=== PATIENT | male | born 1980 | race Caucasian/White ===

== ENCOUNTER 2018-01-15 08:03 | Outpatient (RCR) | payer MEDICAID, SELFPAY ==
--- NOTE | 2018-01-15 08:26 | NT_ITS ---
01/15/18 Iron completed his MSP program today. I touched base with him regarding his return to work this week. He's worked 2 shifts this week, and states that he had no difficulty. He felt confident with the tasks he was completing, was able to manage stairs repetitively, and did not experience any significant fatigue. He's going to drop down to 1x/week for MSP, and will touch base with me as needed, gradually transitioning to a fully independent program.
== END 2018-02-12 23:59 | disposition home or self-care (01) ==
LOC: PT 08:03
PROVIDERS: PCP Nurse Practitioner Family; Referring Provider Physical Medicine & Rehabilitation; Visit Provider Physical Medicine & Rehabilitation
DX: I69.393 Ataxia following cerebral infarction (principal)

== ENCOUNTER 2018-03-29 01:45 | Outpatient (CLI) | payer MEDICAID, SELFPAY ==
[2018-03-29 10:11] LABS: Cholesterol 99 mg/dL (50-200); HDL Cholesterol 41 mg/dL (40-60); LDL CHOLESTEROL 50 mg/dL (<100); Triglyceride 44 mg/dL (30-150)
== END 2018-03-29 02:05 ==
PROVIDERS: PCP Nurse Practitioner Family; Visit Provider Nurse Practitioner Family
DX: E78.5 Hyperlipidemia, unspecified (principal)
CPT/HCPCS: 36415; 80061; 83721

== ENCOUNTER 2019-04-15 09:33 | Outpatient (CLI) | payer OTHER, SELFPAY ==
[2019-04-15 11:04] LABS: Calculated LDL 58 mg/dL; Cholesterol 113 mg/dL (50-200); HDL Cholesterol 38 mg/dL (40-60); Triglyceride 87 mg/dL (30-150)
== END 2019-04-15 09:53 ==
PROVIDERS: PCP Nurse Practitioner Family; Visit Provider Nurse Practitioner Family
DX: Z86.73 Personal history of transient ischemic attack (TIA), and cerebral infarction without residual deficits (principal); Z91.89 Other specified personal risk factors, not elsewhere classified
CPT/HCPCS: 36415; 80061

== ENCOUNTER 2019-08-19 09:24 | Outpatient (CLI) | payer MEDICARE, OTHER, SELFPAY ==
[2019-08-22 12:37] LABS: HSV Type 1 Ab, IgG Positive (Negative); HSV Type 2 Ab, IgG Negative (Negative)
== END 2019-08-19 09:44 ==
PROVIDERS: PCP Nurse Practitioner Family; Visit Provider Nurse Practitioner Family
DX: B00.1 Herpesviral vesicular dermatitis (principal)
CPT/HCPCS: 36415; 86694; 86695; 86696

== ENCOUNTER 2020-04-02 07:44 | Outpatient (CLI) | payer OTHER, SELFPAY ==
[2020-04-04 17:53] LABS: COVID-19 RT-PCR Result NEGATIVE (Negative)
== END 2020-04-02 08:04 ==
PROVIDERS: Student in an Organized Health Care Education/Training Program; PCP Nurse Practitioner Family; Visit Provider Nurse Practitioner Family
DX: Z20.828 Contact with and (suspected) exposure to other viral communicable diseases (principal)
CPT/HCPCS: U0003

== ENCOUNTER 2021-06-25 06:13 | Emergency (ER) | payer MEDICARE, SELFPAY ==
[2021-06-25] VITALS (23 sets, daily range): BP systolic 93–134; BP diastolic 61–81; PULSE 77–97; RESP 12–36; TEMP 36.1; O2SAT 95–98
--- NOTE | 2021-06-25 06:15 | RT.EKG_ITS ---
APPROVED REPORT Exam: Resting ECG Reason for Exam: chest pain Patient Location: E HR:85 bpm ECG Measurements Heart Rate 85 AXIS MI 151 P 59 QRSd 99 QRS 57 QT 359 T 32 QTc 427 Conclusion Sinus rhythm...normal P axis, V-rate 60- 99
--- NOTE | 2021-06-25 06:34 | W.ED.GENAD ---
Discharge Plan Disposition Patient Disposition: HOME Condition: Good Discharge Details Clinical Impression: Fever, Pneumonia Primary Care Provider: Mary Benavides ED Provider: Bradley Miranda Home Meds and New Rx's Prescriptions: New doxycycline hyclate 100 mg tablet 100 mg PO BID Qty: 20 RF: 0 Continued Centrum 18-400 mg-mcg tablet 1 tab PO DAILY RF: 0 Lumigan 0.01 % drops 1 drp ophthalmic (eye) QPM RF: 0 Hylands leg cramps 1 tab PO DAILY PRN (Reason: Leg cramps) RF: 0 atorvastatin 40 mg tablet 40 mg PO DAILY Qty: 90 RF: 3 aspirin 81 MG tablet,chewable 81 mg PO DAILY RF: 0 Discharge Instructions Instructions: Bacterial Pneumonia (ED) Additional Instructions: Your COVID test is negative. At this time your work-up shows evidence of mild pneumonia. Please take the antibiotic as directed. It is been sent to your pharmacy on file. If you notice any worsening of your symptoms, or any new symptoms such as vomiting, diarrhea, fever, chills, shortness of breath, chest pain, numbness, weakness, or fainting , please return immediately to the emergency department for reevaluation. Please follow up with your primary care provider as soon as possible for reassessment and reevaluation. As always, it was a pleasure participating in your medical care today. 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 He can't think of anything that makes the pain come or go but had some pain this morning and noted a fever to 101.7 so came here. He has had a dry cough as well. Denies headache, neck stiffness, sore throat, n/v, dysuria, diarrhea, and no recent travel. He is in no distress on exam and denies chest pain now, points to the left anterior axillary line over left lower chest where he had the pain. He has a nondistended abdomen, mild tenderness in llq without guarding. Unclear etiology for his chest/abdomen pain and fever based on history and physical, will obtain labs including cbc, cultures, lactate, and also image his chest and abdomen to evaluate for pe, pneumonia and diverticulitis Differential Diagnosis Differential Diagnosis: pneumonia, covid, diverticulitis, pe Medical Records Medical records reviewed: Yes I reviewed the patient's medical records. Lab Data Lab results reviewed: Yes I reviewed the patient's lab results. ECG Data Attestation: I personally reviewed and interpreted this ECG (s) as follows: Prior ECG tracings: not available for review Interpretation: sinus rhythm, rate of 85, no acute st t wave ischemic findings <Bradley Miranda, - Last Filed: 06/25/21 08:58> The patient was signed out to me by my colleague Dr. Chacho Howell. Please refer to his HPI, physical exam, assessment and plan. At time of signout we are pending CT scan and COVID test reassessment. CT scan shows evidence of mild pneumonitis versus pneumonia. Laboratory work-up is stable, patient vital signs are stable, no hypoxemia, tachypnea, hypotension, or significant tachycardia. COVID test is negative. Patient appears notably stable for outpatient treatment and management of community-acquired pneumonia. He will be started on doxycycline. He will be given here. Discussed red flags for which to return. I have extensively reviewed the treatment plan and discharge instructions with the patient. I have addressed all patient concerns at this time. The patient was made aware of what symptoms to monitor for that would warrant a return to the emergency department. Discussed the plan with the patient, they demonstrate verbal understanding and agreement with our assessment and plan at this time. The documentation in this chart was dictated using [employer] dictation software. Please excuse any dictation errors. FINDINGS: The lungs show very subtle ground-glass opacities in a fairly diffuse pattern, most marked in the lung apices but also involving peripheral portions of the left lower lobe. No focal consolidation. There is no pleural effusion seen. There is no mediastinal or hilar adenopathy. Pulmonary arteries are unremarkable with no evidence of pulmonary embolic disease. Thoracic aorta and major branches appear intact with no evidence of aneurysm or dissection. No bony abnormality seen in the thorax. The liver is normal appearance. Gallbladder and bile ducts are CT normal. No abnormality seen involving the spleen. Pancreas appears intact. The adrenals are unremarkable in appearance. The kidneys appear intact with no evidence of hydronephrosis or nephrolithiasis. 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 Abdominal aorta and major visceral branches appear intact. No significant abdominal wall hernia seen. No significant abdominal or pelvic adenopathy although there is mild prominence of mesenteric nodes, nonspecific.. No focal bowel pathology. No evidence of appendicitis or diverticulitis. IMPRESSION: The appearance is suggestive of a mild diffuse pneumonitis, presumably viral. No other acute findings. HPI <Chacho Howell MD - Last Filed: 06/25/21 06:43> General Mode of arrival: ambulatory. Date/Time Provider Initiated Documentation: 06/25/21 06:20. Limitations to Documentation: no limitations. Information obtained by: patient. History of Present Illness 40 year old M presents to the emergency department with the chief complaint of left sided chest pain, described as moderate, Quality is described as stabbing, and is localized to the chest. Patient abdomen. Patient started experiencing this day(s) (2) and it has been now resolved. No relieving factors improve symptom(s), No exacerbating factors reported . Patient notes cough and fever/chills. Patient did receive the following treatments prior to arrival, none Related Data Home Medications Medication Instructions Recorded Confirmed aspirin 81 mg PO DAILY tab-cap 02/23/17 06/25/21 multivitamin-ferrous 1 tab PO DAILY 04/05/18 06/25/21 fumarate-folic acid 18 mg-400 mcg tablet Hylands leg cramps 1 tab PO DAILY PRN 06/20/21 06/25/21 atorvastatin 40 mg tablet 40 mg PO DAILY #90 tab-cap 06/20/21 06/25/21 bimatoprost 0.01 % eye drops 1 drp OPHTHALMIC (EYE) QPM 06/20/21 06/25/21 doxycycline hyclate 100 mg PO BID #20 tab 06/25/21 Previous Rx's Medication Instructions Recorded atorvastatin 40 mg tablet 40 mg PO DAILY #90 tab-cap 06/20/21 doxycycline hyclate 100 mg PO BID #20 tab 06/25/21 Allergies Allergy/AdvReac Type Severity Reaction Status Date / Time No Known Allergies Allergy Verified 06/25/21 06:24 General Stated Complaint: Abd Prob JANN: 3 Review of Systems <Chacho Howell MD - Last Filed: 06/25/21 06:43> All systems reviewed & are unremarkable except as noted in HPI and below Constitutional Constitutional: Denies chills and Denies weakness Cardiovascular Cardiovascular: Denies dyspnea Respiratory Respiratory: Denies dyspnea Gastrointestinal Gastrointestinal: Denies nausea and Denies vomiting Musculoskeletal Musculoskeletal: Denies joint swelling Neurologic Neurologic: Denies weakness Psychiatric Psychiatric: Denies depression [facility] <Chacho Howell MD - Last Filed: 06/25/21 06:43> All Active Problems (Updated 06/25/21 @ 08:43 by Bradley Miranda DO) Fever (Acute) Pneumonia (Acute) Onychomycosis (Acute) IFG (impaired fasting glucose) (Acute) HSV-1 (herpes simplex virus 1) infection (Acute) Male erectile dysfunction, unspecified (Chronic 05/11/17) S/p CVA Medical History Aspiration pneumonia of left lower lobe (01/22/17) During inpatient hospitalization for CVA in 2017 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 Grandmother , Lung CA at age 77. Neoplasm Lung CA Maternal Grandfather Melanoma Social History Smoking/Tobacco Use Status: Never Second Hand Exposure: No Smoking risk assessment performed?: Yes Alcohol Intake: current Alcohol Intake frequency: holidays/special occasions only Substance use type: does not use Adopted: No Caregiver/Support person: No Foster care: No Household members: significant other Housing: apartment Number of Children: 1 Communication Needs: Corrective Lenses Education Level: vocational Do you need help understanding health information?: Rarely current occupation: Manager [employer] Pets and animals: Yes Pets and animals: cat(s) and dog(s) Sexually active: Yes Do you think of yourself as: straight/heterosexual Current gender identity: male What is your relationship status?: living with partner How often do you talk on the phone with friends or family?: once per week How often do you get together with friends or relatives?: once per week How often do you attend yazidism or catholic services?: 1-3 times per year Do you belong to any clubs or organized social groups?: yes Panel score (0-1 are the most socially isolated patients): 2 NHANES result reviewed/action taken: Yes What type of physical activity do you participate in: regular exercise Duration: < 15 minutes/day Frequency: 1-2 times per week Francine/Faith: Adventism Special francine needs: No Seatbelt use: always Helmet use: Yes Drive intox or ride w/intox 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) Water heater temp set <120 deg: Yes Working smoke detector in home: Yes Fire extinguisher in home: Yes Carbon monox detector in home: Yes Firearms in home: No Do you feel safe at home: Yes Do you feel safe in your relationship?: Yes Exam <Chacho Howell MD - Last Filed: 06/25/21 06:43> Const General: no acute distress Orientation: alert [facility] Head: normal to inspection Ears: external ears normal General nose exam: external nose normal Mouth: moist mucous membranes Eyes General: appearance normal, both eyes and all related structures Neck Neck: normal visual inspection Chest Chest: normal inspection of the chest Resp Effort & Inspection: normal respiratory effort and able to speak in complete sentences Cardio Rate: regular rate GI Palpation: soft and tender Skin General skin exam: no rashes or lesions noted Neuro General: patient alert and patient oriented x3 Extrem General: normal to inspection Psych Mental Status: mental status grossly normal Course <Chacho Howell MD - Last Filed: 06/25/21 06:43> Vital Signs Vital signs: Vital Signs Temperature 36.1 C L 06/25/21 06:21 Pulse 95 H 06/25/21 06:21 Respiratory Rate 16 06/25/21 06:21 Blood Pressure 123/81 06/25/21 06:21 Pulse Oximetry 98 06/25/21 06:21 Temperature 36.1 C L 06/25/21 06:21 Temperature Source Skin 06/25/21 06:21 Pulse 95 H 06/25/21 06:21 Respiratory Rate 16 06/25/21 06:21 Respiratory Effort Non-Labored 06/25/21 06:25 Blood Pressure 123/81 06/25/21 06:21 Pulse Oximetry 98 06/25/21 06:21 Oxygen Delivery Method Room Air 06/25/21 06:21 Oxygen Flow Rate 0 06/25/21 06:21 Pain Level 6 06/25/21 06:21 Lab/Test Results Lab/Test Results: 06/25/21 06:26 Blood Blood Culture - Pending 06/25/21 06:26 Blood Blood Culture - Pending Sign Out <Chacho Howell MD - Last Filed: 06/25/21 06:43> Sign Out Data: Sign Out Comment: intermittent left sided chest/abdomen/back pain for 2 days and today fever to 101.7 at home, pending labs and ct Last updated by Chacho Howell MD at 06/25/21 06:48
[2021-06-25] MEDS: Normal Saline 1,000 ML 1000 ML IV (06:35)
[2021-06-25 06:36] LABS: Abs Immature Grans 0.08 10^3/uL (0.0-0.06); Absolute Eosinophil Count 0.04 10^3/uL (0.0-0.7); Absolute Monocyte Count 0.95 10^3/uL (0.1-0.8); Basophils % 0.5; Eosinophils % 0.2; HCT 43.4 % (40.0-50.0); HGB 13.9 g/dL (13.5-17.5); Immature Grans % 0.4; MCV 84.3 fL (80-95); Monocytes % 4.9; Nucleated RBC 0 %; Platelet Count 214 10^3/uL (130-400); RBC 5.15 10^6/uL (4.36-5.78); RDW 12.2 % (11.8-14.1); RDW-SD 37.6 fL; WBC 19.32 10^3/uL (4.4-10.8)
[2021-06-25 06:38] LABS: Absolute Lymphocyte Count 0.97 10^3/uL (1.2-3.4); Absolute Neutrophil Count 17.19 10^3/uL (1.2-6.7)
[2021-06-25] MEDS: Omnipaque 350 MG/ML 100 ML BTL IJ (06:58)
[2021-06-25 06:59] LABS: ALT 41 U/L (16-63); AST 31 U/L (15-37); Alkaline Phosphatase 82 U/L (46-116); Anion Gap 8.8 mmol/L (3-11); BUN 16 mg/dL (7-18); Bilirubin, Direct 0.1 mg/dL (0.0-0.2); Bilirubin, Total 0.4 mg/dL (0.2-1.0); CO2 29.2 mmol/L (21.0-32.0); Calcium 9.1 mg/dL (8.5-10.1); Chloride 106 mmol/L (98-107); Glucose 135 mg/dL (74-106); Lipase 94 U/L (73-393); Magnesium 1.7 mg/dL (1.8-2.4); Potassium 3.7 mmol/L (3.5-5.1); Sodium 144 mmol/L (136-145); Total Protein 7.4 g/dL (6.4-8.2); Troponin I < 50 ng/L (<or=60)
[2021-06-25] MEDS: Normal Saline 100 ML BAG 50 ML IJ (07:00)
[2021-06-25 07:29] LABS: Source Nasal/Nares
--- NOTE | 2021-06-25 07:35 | DI.CT_ITS ---
Exam(s) CT CHEST PE ABD PELVIS W EXAM: CT CHEST PE ABD PELVIS W CLINICAL HISTORY: left sided chest pain, fever, left abdominal pain TECHNIQUE: CT examination of the chest, abdomen, and pelvis was performed with intravenous infusion of 100 cc of Omnipaque 350. COMPARISON: CT CTA BRAIN AND NECK from 06/24/2017 FINDINGS: The lungs show very subtle ground-glass opacities in a fairly diffuse pattern, most marked in the betzy g apices but also involving peripheral portions of the left lower lobe. No focal consolidation. There is no pleural effusion seen. There is no mediastinal or hilar adenopathy. Pulmonary arteries are unremarkable with no evidence of pulmonary embolic disease. Thoracic aorta and major branches appear intact with no evidence of aneurysm or dissection. No bony abnormality seen in the thorax. The liver is normal appearance. Gallbladder and bile ducts are CT normal. No abnormality seen involving the spleen. Pancreas appears intact. The adrenals are unremarkable in appearance. The kidneys appear intact with no evidence of hydroneph rosis or nephrolithiasis. 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 Abdominal aorta and major visceral branches appear intact. No significant abdominal wall hernia seen. No significant abdominal or pelvic adenopathy although th ere is mild prominence of mesenteric nodes, nonspecific.. No focal bowel pathology. No evidence of appendicitis or diverticulitis. IMPRESSION: The appearance is suggestive of a mild diffuse pneumonitis, presumably viral. No other acute findings. RADIATION DOSE DELIVERED: 888.98mGy.cm Total DLP 888.98mGy.cm Total DLP 11.79mGy CTDIvol
[2021-06-25 08:00] LABS: Bilirubin Negative (Negative); Blood Negative (Negative); Clarity Sl Cloudy (Clear); Glucose Negative (Negative); Ketones Negative (Negative); Leukocyte Esterase Negative (Negative); Nitrite Negative (Negative); Urobilinogen 0.2 EU/dL (Up TO 0.2)
[2021-06-25 08:24] LABS: COVID-19 PCR Negative (Negative)
[2021-06-25] MEDS: Normal Saline Flush 10 ML SYR IVP (08:49)
[2021-06-25] MEDS: Doxycycline Hyclate 100 MG CAP PO (08:49)
== END 2021-06-25 08:55 | disposition home or self-care (01) ==
PROVIDERS: Emergency Medicine; Emergency Provider Student in an Organized Health Care Education/Training Program; PCP Nurse Practitioner Family
DX: R50.9 Fever, unspecified (principal); J18.9 Pneumonia, unspecified organism; R07.9 Chest pain, unspecified; R10.9 Unspecified abdominal pain; Z20.822 Contact with and (suspected) exposure to COVID-19
CPT/HCPCS: 71275; 74177; 80053; 83690; 87040; 87635; 93005; 96360; 96361; 99285; 81003; 82248; 83605; 83735; 84484; 85025; 87086; 93010; 99284; J3490

== ENCOUNTER 2021-07-09 19:47 | Outpatient (REF) | payer MEDICARE, SELFPAY ==
[2021-07-11 13:28] LABS: COVID-19 RT-PCR UVMMC Result Negative (Negative)
== END 2021-07-09 19:48 | disposition home or self-care (01) ==
LOC: LBN 19:47
PROVIDERS: PCP Nurse Practitioner Family; Visit Provider Student in an Organized Health Care Education/Training Program
DX: Z20.822 Contact with and (suspected) exposure to COVID-19 (principal)
CPT/HCPCS: U0003; U0005

== ENCOUNTER 2021-07-10 14:53 | Outpatient (CLI) | payer MEDICARE, SELFPAY ==
--- NOTE | 2021-07-10 11:45 | DI.RAD_ITS ---
Exam(s) XR CHEST 2V PA LATERAL EXAM: XR CHEST 2V PA LATERAL CLINICAL HISTORY: PNEUMONIA, J18.9, CHEST TIGHTNESS, R07.89. TECHNIQUE: 2D digital imaging was performed. COMPARISON: CR XR CHEST 2V PA LATERAL from 08/01/2019 FINDINGS: Heart size is normal. The mediastinum is not widened. Lungs are clear. No infiltrates nor pleural effusions. IMPRESSION: No acute pulmonary findings. DATA REPOSITORY: RADIATION DOSE DELIVERED:
== END 2021-07-10 15:13 ==
PROVIDERS: PCP Nurse Practitioner Family; Visit Provider Student in an Organized Health Care Education/Training Program
DX: R07.89 Other chest pain (principal); J18.9 Pneumonia, unspecified organism
CPT/HCPCS: 71046

== ENCOUNTER 2022-07-03 14:51 | Outpatient (RCR) | payer MEDICARE, SELFPAY ==
--- NOTE | 2022-07-03 15:00 | HOLTER_ITS ---
APPROVED REPORT Conclusion This is a 48-hour Holter monitor ordered for tachycardia Rhythm throughout was sinus with an average heart rate of 67. Minimum was 48, maximum 112 1 premature ventricular contraction was seen A total of 11 atrial premature beats occurred There was no atrial fibrillation, no SVT, no high-grade AV block, no pauses greater than 3 seconds There were no apparent patient symptoms
== END 2022-07-15 23:59 | disposition home or self-care (01) ==
LOC: CARDOPNVT 14:51
PROVIDERS: PCP Nurse Practitioner Family; Visit Provider Nurse Practitioner Family
DX: R00.0 Tachycardia, unspecified (principal); I49.1 Atrial premature depolarization; I49.3 Ventricular premature depolarization
CPT/HCPCS: 93227; 93225; 93226

== ENCOUNTER 2022-07-07 02:58 | Outpatient (CLI) | payer MEDICARE, SELFPAY ==
[2022-07-07 07:20] LABS: Abs Immature Grans 0.02 10^3/uL (0.0-0.06); Absolute Basophil Count 0.04 10^3/uL (0.0-0.2); Absolute Eosinophil Count 0.16 10^3/uL (0.0-0.7); Absolute Lymphocyte Count 3.06 10^3/uL (1.2-3.4); Absolute Monocyte Count 0.52 10^3/uL (0.1-0.8); Absolute Neutrophil Count 3.37 10^3/uL (1.2-6.7); Basophils % 0.6; Eosinophils % 2.2; HCT 46.2 % (40.0-50.0); Immature Grans % 0.3; Lymphocytes % 42.7; MCH 28.3 pg (27.0-33.0); MCHC 34.6 % (32.0-36.0); MCV 82 fL (80-95); Monocytes % 7.3; Neutrophils % 46.9; Platelet Count 221 10^3/uL (130-400); RBC 5.65 10^6/uL (4.36-5.78); RDW 11.8 % (11.8-14.1); RDW-SD 35.1 fL; WBC 7.17 10^3/uL (4.4-10.8)
[2022-07-07 09:56] LABS: CO2 20.6 mmol/L (21.0-32.0); Cholesterol 135 mg/dL (<200); HDL Cholesterol 30 mg/dL (40-60); TSH (W/Ref FT4) 5.09 uIU/mL (0.36-3.74)
[2022-07-07 10:17] LABS: Triglyceride 1162 mg/dL (<150)
[2022-07-07 10:43] LABS: LDL CHOLESTEROL 45 mg/dL (<100)
[2022-07-07 11:01] LABS: FREE T4 0.73 ng/dL (0.76-1.46)
[2022-07-07 11:08] LABS: ALT 54 U/L (16-63); AST 37 U/L (15-37); Albumin 4.7 g/dL (3.4-5.0); Alkaline Phosphatase 63 U/L (46-116); Anion Gap 16.4 mmol/L (3-11); BUN 18 mg/dL (7-18); Bilirubin, Total 0.5 mg/dL (0.2-1.0); CREATININE 0.9 mg/dL (0.70-1.30); Calcium 9.2 mg/dL (8.5-10.1); Chloride 105 mmol/L (98-107); Estimated GFR 109.36 (mL/min/1.73m2); Glucose 116 mg/dL (74-106); Magnesium 2.1 mg/dL (1.8-2.4); Potassium 3.9 mmol/L (3.5-5.1); Sodium 142 mmol/L (136-145); Total Protein 7.5 g/dL (6.4-8.2)
[2022-07-08 09:43] LABS: Hepatitis C Ab w Rflx HCV PCR Negative (Negative)
== END 2022-07-07 02:59 | disposition home or self-care (01) ==
LOC: LBO 02:58
PROVIDERS: PCP Nurse Practitioner Family; Visit Provider Nurse Practitioner Family
DX: E78.5 Hyperlipidemia, unspecified (principal); R53.83 Other fatigue; E83.42 Hypomagnesemia; Z11.59 Encounter for screening for other viral diseases
CPT/HCPCS: 36415; 80053; 80061; 83721; 86803; 83735; 84439; 84443; 85025

== ENCOUNTER 2022-07-21 14:47 | Outpatient (CLI) | payer MEDICARE, SELFPAY | END 2022-07-21 14:48 | disposition home or self-care (01) | LOC: CARDOPNVT 14:47 | PROVIDERS: PCP Nurse Practitioner Family; Visit Provider Nurse Practitioner Family | DX: R00.2 Palpitations (principal) | CPT/HCPCS: 93246 ==

== ENCOUNTER 2022-08-15 07:31 | Outpatient (CLI) | payer MEDICARE, SELFPAY ==
--- NOTE | 2022-08-15 08:55 | W.CARDEVENT ---
Date of service: 08/15/22 Time of Service: 08:56 Cardiac Event Recorder Referring Provider:: Mary Benavides Indications:: Palpitations Cardiac Event Note: This is a 14-day cardiac event monitor ordered for palpitations Rhythm throughout was sinus with an average heart rate of 69. Minimum was 38, maximum 158 There were no supraventricular dysrhythmias A total of 12 isolated PVCs were seen There was no atrial fibrillation no high-grade AV block no pauses greater than 3 seconds No patient's symptoms were reported
== END 2022-08-15 07:32 | disposition home or self-care (01) ==
LOC: CARDOPNVT 07:31
PROVIDERS: PCP Nurse Practitioner Family; Visit Provider Internal Medicine Cardiovascular Disease
DX: R00.2 Palpitations (principal); I49.3 Ventricular premature depolarization
CPT/HCPCS: 93248

== ENCOUNTER 2022-09-09 02:14 | Outpatient (CLI) | payer MEDICARE, SELFPAY ==
[2022-09-09 08:30] LABS: TSH (W/Ref FT4) 0.01 uIU/mL (0.36-3.74)
[2022-09-09 08:48] LABS: FREE T4 1.46 ng/dL (0.76-1.46)
== END 2022-09-09 02:15 | disposition home or self-care (01) ==
PROVIDERS: PCP Nurse Practitioner Family; Visit Provider Nurse Practitioner Family
DX: E03.9 Hypothyroidism, unspecified (principal)
CPT/HCPCS: 36415; 84439; 84443

== ENCOUNTER 2022-11-07 01:43 | Outpatient (CLI) | payer MEDICARE, SELFPAY ==
[2022-11-07 17:44] LABS: TSH (W/Ref FT4) 0.01 uIU/mL (0.36-3.74)
[2022-11-07 18:05] LABS: FREE T4 1.34 ng/dL (0.76-1.46)
== END 2022-11-07 01:44 | disposition home or self-care (01) ==
PROVIDERS: PCP Nurse Practitioner Family; Visit Provider Nurse Practitioner Family
DX: E03.9 Hypothyroidism, unspecified (principal)
CPT/HCPCS: 36415; 84439; 84443

== ENCOUNTER 2023-02-04 04:06 | Outpatient (CLI) | payer MEDICARE, SELFPAY | END 2023-02-04 04:07 | disposition home or self-care (01) | LOC: LBO 04:06 | PROVIDERS: PCP Nurse Practitioner Family; Visit Provider Nurse Practitioner Family | DX: E03.9 Hypothyroidism, unspecified (principal) | CPT/HCPCS: 36415; 84443 ==

== ENCOUNTER 2023-09-17 11:38 | Outpatient (CLI) | payer MEDICARE, SELFPAY ==
[2023-09-17 10:52] LABS: Hemoglobin A1C 5.8 % (<5.7)
[2023-09-17 11:01] LABS: ALT 51 U/L (16-63); AST 22 U/L (15-37); Albumin 4.7 g/dL (3.4-5.0); Alkaline Phosphatase 64 U/L (46-116); Anion Gap 9.4 mmol/L (3-11); BUN 13 mg/dL (7-18); Bilirubin, Total 0.6 mg/dL (0.2-1.0); CO2 30.6 mmol/L (21.0-32.0); CREATININE 0.9 mg/dL (0.70-1.30); Calcium 9.4 mg/dL (8.5-10.1); Calculated LDL 72 mg/dL (<100); Chloride 106 mmol/L (98-107); Cholesterol 128 mg/dL (<200); Estimated GFR 108.68 (mL/min/1.73m2); Glucose 103 mg/dL (74-106); HDL Cholesterol 47 mg/dL (40-60); Potassium 4.4 mmol/L (3.5-5.1); Sodium 146 mmol/L (136-145); TSH (W/Ref FT4) 1.27 uIU/mL (0.36-3.74); Total Protein 7.6 g/dL (6.4-8.2); Triglyceride 47 mg/dL (<150)
== END 2023-09-17 11:39 | disposition home or self-care (01) ==
LOC: LBO 11:38
PROVIDERS: PCP Nurse Practitioner Family; Visit Provider Nurse Practitioner
DX: R73.03 Prediabetes (principal); E78.1 Pure hyperglyceridemia; E03.9 Hypothyroidism, unspecified
CPT/HCPCS: 36415; 80053; 80061; 83036; 84443

== ENCOUNTER 2024-09-07 02:46 | Outpatient (CLI) | payer MEDICARE, SELFPAY ==
[2024-09-07 08:00] LABS: Hemoglobin A1C 5.6 % (<5.7)
[2024-09-07 08:13] LABS: ALT 40 U/L (16-63); AST 20 U/L (15-37); Albumin 4.3 g/dL (3.4-5.0); Alkaline Phosphatase 57 U/L (46-116); BUN 16 mg/dL (7-18); Bilirubin, Total 0.8 mg/dL (0.2-1.0); CREATININE 0.8 mg/dL (0.70-1.30); Calcium 9.7 mg/dL (8.5-10.1); Calculated LDL 57 mg/dL (<100); Chloride 106 mmol/L (98-107); Cholesterol 119 mg/dL (<200); Estimated GFR 111.92 (mL/min/1.73m2); Glucose 103 mg/dL (74-106); HDL Cholesterol 46 mg/dL (>or=40); Potassium 4.5 mmol/L (3.5-5.1); Sodium 147 mmol/L (136-145); TSH (W/Ref FT4) 0.75 uIU/mL (0.36-3.74); Total Protein 6.8 g/dL (6.4-8.2); Triglyceride 80 mg/dL (<150)
== END 2024-09-07 02:47 | disposition home or self-care (01) ==
PROVIDERS: PCP Nurse Practitioner Family; Referring Provider Nurse Practitioner; Visit Provider Nurse Practitioner
DX: E03.9 Hypothyroidism, unspecified (principal); E78.1 Pure hyperglyceridemia; R73.01 Impaired fasting glucose; R73.03 Prediabetes
CPT/HCPCS: 36415; 80053; 80061; 83036; 84443